=== PATIENT | female | born 1965 | race Caucasian/White ===

== ENCOUNTER 2019-03-04 14:50 | Observation (INO) | payer BC, SELFPAY ==
[2019-03-04] VITALS (8 sets, daily range): BP systolic 111–147; BP diastolic 79–99; PULSE 47–58; RESP 12–19; TEMP 36.6–36.9; O2SAT 94–99; BMI 33.0
--- NOTE | 2019-03-04 14:57 | ED.RN ---
NO OLD EKG
--- NOTE | 2019-03-04 14:58 | CT_ITS ---
STUDY: CTA CHEST REASON FOR EXAM: Female, 53 years old. Right-sided chest pain. Thoracic aneurysm. RADIATION DOSAGE (If Supplied By Facility): CTDIvol = ( 15.60 ) mGy, DLP = ( 1133.06 ) mGycm TECHNIQUE: The examination was performed with the intravenous administration of 100 IV Isovue 370. Post-processing of the angiographic images was performed, with multiplanar reformation and 3D reconstruction. Individualized dose optimization techniques were used for this CT. COMPARISON: None. FINDINGS: Normal enhancement of the main pulmonary artery and right and left pulmonary arteries. Normal enhancement of the bilateral peripheral pulmonary arteries. There is no demonstrated pulmonary embolism. Normal thoracic aorta and visualized great vessels. There is no demonstrated aortic dissection. Normal heart and pericardium. Sternal cerclage wires are present from a prior sternotomy. Normal mediastinum. Normal hilar regions. Normal visualized trachea and bronchi. The lungs are well expanded. Normal pulmonary parenchyma. Normal pleura. Normal chest wall structures. There are degenerative changes of thoracic spine. Visualized upper abdomen shows cholelithiasis. CT/CTA Chest W/WO Contrast IMPRESSION: Normal CTA chest examination, without a demonstrated pulmonary embolism or arterial dissection. No acute chest disease. Electronically Signed: Mandeep Garrido MD at 16:30 EDT , Service support ,
--- NOTE | 2019-03-04 14:58 | RAD_ITS ---
STUDY: X-RAY CHEST REASON FOR EXAM: Female, 53 years old. Chest pain and double vision. TECHNIQUE: Single AP portable view of the chest. COMPARISON: None. FINDINGS: EKG electrodes are seen. The lungs are clear and expanded. There is no demonstrated pleural abnormality. Sternal cerclage wires and vascular clips are present from a prior sternotomy and coronary artery bypass graft procedure (CABG). Normal mediastinum and preston. Normal visualized pulmonary arteries. There is atherosclerotic tortuosity of the aortic arch and descending thoracic aorta. Normal visualized thoracic spine. Normal visualized ribs, clavicles, and shoulders. There is no demonstrated abnormality of the visualized soft tissue structures of the upper abdomen. RAD/Chest 1 View (Portable) IMPRESSION: Normal x-ray examination of the chest. Electronically Signed: Shant Mart, at 15:13 EDT , Service support ,
--- NOTE | 2019-03-04 14:59 | CT_ITS ---
STUDY: CTA OF THE ABDOMINAL AORTA AND BILATERAL LOWER EXTREMITIES REASON FOR EXAM: Female, 53 years old. Right-sided pain. History of previous aneurysm. TECHNIQUE: Axial CT angiography multi-detector data acquisition was obtained following intravenous administration of 100 IV Isovue 370. Axial images and MIP images were reconstructed from the axial data set. Post-processing of the angiographic images was performed, with multiplanar reformation and 3D reconstruction. Individualized dose optimization techniques were used for this CT. TECHNICAL QUALITY: Good COMPARISON: None. Descriptors of Narrowing: None (0%) Mild (< 50%) Moderate (50-70%) Severe (70-90%) Subtotal/Total Occlusion (90-100%) Non-Evaluable (technically non-diagnostic FINDINGS: Abdominal aorta: No demonstrated narrowing. No aneurysm. No dissection. No significant calcified plaque. Celiac and superior mesenteric arteries: No demonstrated narrowing. Inferior mesenteric artery: No demonstrated narrowing. Right renal artery(arteries): No demonstrated narrowing. Left renal artery(arteries): No demonstrated narrowing. Right common iliac artery: No demonstrated narrowing. Right external iliac artery: No demonstrated narrowing. Right internal iliac artery: No demonstrated narrowing. Left common iliac artery: No demonstrated narrowing. Left external iliac artery: No demonstrated narrowing. Left internal iliac artery: No demonstrated narrowing. There is fatty liver. Otherwise the liver, pancreas, spleen, and adrenal glands, show no acute abnormalities and are unremarkable for age. There is cholelithiasis. No acute abnormalities of the kidneys. Evaluation of the GI tract is limited by absence of oral contrast. Cannot exclude stomach wall thickening. No dilated loops of bowel or evidence for obstruction. Cannot exclude segmental thickening of the mcdonnell of the small or large bowel. Cannot exclude enteritis or colitis. Diverticulosis without diverticulitis. Moderate diffuse fecal retention. Appendix within normal limits. No evidence for adenopathy or mass. Skeletal structures show no acute abnormalities and are unremarkable for age. There are bilateral pars defects of L5 with prominent degenerative disc disease and grade [address]/CTA Abdomen W/WO Contrast IMPRESSION: No acute abnormality. Cholelithiasis. Normal aorta with no aneurysm or dissection. Electronically Signed: Mandeep Garrido MD at 16:36 EDT , Service support ,
--- NOTE | 2019-03-04 14:59 | ED.VIS.GEN ---
History of Present Illness Chief Complaint: Chest Pain Informant: Patient Onset: Days Context: Gradual Onset Timing: Intermittent Current Severity: Moderate Maximum Severity: Moderate Narrative: The patient is a 53-year-old female with history of ascending aortic aneurysm that was repaired 5 years ago presents to the emergency department chest pain. Patient states she has been having intermittent pain in the right side of her chest. She states been about a month. She saw her primary care physician and was started on a new antihypertensive. She states that it was a lisinopril with hydrochlorothiazide derivative. She states her blood pressures been running better, but today was actually low. She was having more pain on the right side of her chest that was worse with exertion and he did feel like it was making her short of breath. She states that the symptoms did seem similar to her prior aortic aneurysm. She does have a known bicuspid valve. She is not on anticoagulants. Prior similar symptoms: Yes Recent Illness/Hospitalization: No Past Medical History - Allergies and Home Meds Allergies/Adverse Reactions: Allergies No Known Allergies Allergy (Verified 03/04/19 14:58) Primary Care Physician: Sabrina Ronquillo,Out of [NON-STAFF] - Prior records reviewed: Yes Past Medical History: - - TAA Surgical History: - - TAA graft Smoking Status: Never smoker Review of Systems General: Denies: Chills, Fever, Sweats Eyes: Denies: Visual changes - bilaterally, Diplopia ENT: Denies: Rhinorrhea, Sore throat Cardiovascular: Reports: Chest pain Respiratory: Reports: Dyspnea Gastrointestinal: Reports: Nausea Genitourinary: Denies: Dysuria, Hematuria, Frequency Musculoskeletal: Denies: Back pain, Extremity Pain Skin: Denies: Rash, Wounds Neurological: Denies: Headache, Weakness, Numbness Psych: Denies: Anxiety Endocrine: Denies: Polyuria Hematologic: Denies: Easy bruising Physical Exam Vital Signs/Narrative: Vital Signs Temp Pulse Resp BP Pulse Ox 03/04/19 14:54 97.9 F 56 L 19 H 128/96 H 99 Inital Vital Signs reviewed: Yes General: Well nourished, Well developed, No Acute Distress Head: Normocephalic, Atraumatic Eyes: Perrl, EOMI ENT: Moist mucous membranes, No rhinorrhea Neck: Supple, Nontender Cardiovascular: Regular rate, Regular rhythm, No murmurs Respiratory: No distress, CTA bilaterally, Chest nontender Abdomen: Soft, Nontender, Nondistended, Normal bowel sounds Back: Nontender, Normal Inspection Extremities: Nontender, No edema Skin: Normal color, No rash Neurological: Alert, Oriented x3, Cranial nerves II-XII grossly intact, Normal Strength, Normal Sensation Psychological: Normal affect, Normal Mood Diagnostic/Tx/Re-eval Chest X-Ray - ED: 1 View, Normal, Heart, Lungs - Rhythm Strip Rhythm Strip: Sinus Rhythm Rate: 52 Ectopy: None - EKG Initial EKG Interpretation: No Acute Injury Pattern, Sinus Bradycardia Prior: No Prior - Medical Decision Making Clinical Impression(s) from Imaging Studies Chest CTA 03/04/19 14:58 IMPRESSION: Normal CTA chest examination, without a demonstrated pulmonary embolism or arterial dissection. No acute chest disease. Electronically Signed: Mandeep Garrido MD at 16:30 EDT , Service support , Chest X-Ray 03/04/19 14:58 IMPRESSION: Normal x-ray examination of the chest. Electronically Signed: Shant Mart, at 15:13 EDT , Service support , Abdomen CTA 03/04/19 14:59 IMPRESSION: No acute abnormality. Cholelithiasis. Normal aorta with no aneurysm or dissection. Electronically Signed: Mandeep Garrido MD at 16:36 EDT , Service support , Abnormal Lab Results 03/04/19 03/04/19 03/04/19 14:55 14:55 14:55 WBC 7.1 RBC 5.06 Hgb 15.4 H Hct 44.9 MCV 88.7 MCH 30.4 MCHC 34.3 RDW Std Deviation 42.1 RDW Coeff of Jluis 12.9 Plt Count 257 MPV 9.7 Immature Gran % (Auto) 0.000 Neut % (Auto) 55.6 Lymph % (Auto) 31.2 Rolette % (Auto) 5.9 Eos % (Auto) 6.7 H Baso % (Auto) 0.6 Absolute Neuts (auto) 4.0 Absolute Lymphs (auto) 2.22 Nucleated RBC % 0 Sodium 140 Potassium 3.6 Chloride 106 Carbon Dioxide 27.0 Anion Gap 7 BUN 13 Creatinine 0.98 Estim Creat Clear Calc 69.38 Est GFR (MDRD) Af Amer 76 Est GFR (MDRD) Non-Af 63 BUN/Creatinine Ratio 13.3 Glucose 83 Calcium 9.2 Magnesium 2.1 Troponin I < 0.015 B-Natriuretic Peptide 25.0 Patient presents to the emergency department with right-sided chest pain and dyspnea. She states that it feels similar when she had a prior aneurysm. EKG was obtained which showed sinus bradycardia without evidence of acute ischemic change. With the patient's history, she underwent CTA of the chest and abdomen. There is no evidence of new aneurysm, dissection, pulmonary embolus, or other dangerous process. With the patient's pain and risk factor, I do feel that she will benefit from admission for stress echo. Patient was discussed with the hospitalist who agrees with plan of care. Impression 1. Chest pain ED Disposition - Plan for ED Patient: Referrals: [facility] [address] Doctor,Out of [NON-STAFF] -
[2019-03-04 15:09] LABS: Absolute Lymphocyte Count 2.22 X10^3/uL (0.83-4.51); Basophil# 0.04 X10^3/uL; Basophil% 0.6 % (0-1); Eosinophil# 0.48 X10^3/uL; Eosinophils% 6.7 % (0-5); Hematocrit 44.9 % (37-47); Hemoglobin 15.4 g/dL (12.0-15.0); Lymphocyte # 2.22 X10^3/ul (4.0); Lymphocyte % 31.2 % (19-41); Mean Corp Hgb Conc 34.3 g/dL (32-36); Mean Corpuscular Hgb 30.4 pg (27.0-32.0); Mean Corpuscular Volume 88.7 fL (81-99); Mean Platelet Vol. 9.7 fl (6.2-12.0); Monocyte# 0.42 X10^3/uL; Monocyte% 5.9 % (0-10); NRBC Flagged by Analyzer 0 % (0-5); Neutrophil # 3.96 X10^3/uL (2.7-7.7); Neutrophil % 55.6 % (47-70); Platelet Count 257 K/mm3 (150-450); RBC Distribution Width CV 12.9 % (11.6-14.6); RBC Distribution Width SD 42.1 fl (35.1-43.9); Red Blood Count 5.06 M/mm3 (4.2-5.4); White Blood Count 7.1 K/mm3 (4.4-11.0)
[2019-03-04] MEDS: Aspirin 81 MG TAB.CHEW 324 MG PO (15:13)
[2019-03-04 15:25] LABS: Anion Gap 7 (5-15); BUN 13 mg/dL (7-18); BUN/Creat Ratio 13.3 RATIO (10-20); Calcium,Total 9.2 mg/dL (8.5-10.1); Chloride 106 mmol/L (98-107); Creatinine, Serum 0.98 mg/dL (0.55-1.02); EST Glomerular Filtration Rate 63 mL/min (>60); Est Glom Filt Rate - Afr Amer 76 mL/min (>60); Estimated Creatinine Clearance 69.38 ml/min; Glucose 83 mg/dL (74-106); Magnesium 2.1 mg/dL (1.6-2.6); Potassium 3.6 mmol/L (3.5-5.1); Sodium Level 140 mmol/L (136-145)
--- NOTE | 2019-03-04 17:32 | PCM.HP.STD ---
Problem List (1) Chest pain Status: Acute Qualifiers: Chest pain type: unspecified Qualified Code(s): R07.9 - Chest pain, unspecified (2) Bicuspid aortic valve Status: Chronic (3) Thoracic aortic aneurysm Status: Chronic Qualifiers: Presence of rupture: without rupture Qualified Code(s): I71.2 - Thoracic aortic aneurysm, without rupture (4) History of aortic aneurysm repair Status: Chronic (5) Obesity (BMI 30.0-34.9) Status: Chronic (6) Hypertension Status: Chronic Qualifiers: Hypertension type: essential hypertension Qualified Code(s): I10 - Essential (primary) hypertension (7) Bradycardia Status: Chronic History of Present Illness Date of Admission: 03/04/19 Chief Complaint: Chest pain The patient is a 53 y/o F w/ PMHx: Bradycardia, bicuspid aortic valve, history of thoracic aortic aneurysm status post repair approximately 5 years prior in [place], hypertension recently initiated on antihypertensive regimen within the last several weeks, obesity who presents to the [facility] on 03/04/19 with at least a 3-week history of intermittent very focal specific right sided chest discomfort described as sharp in nature occurring independent of activity, resolving quickly after 1 to 2 minutes maximum with no associated nausea, emesis, diaphoresis or dyspnea initially however she did have on a.m. of ED day of presentation onset right-sided jaw paresthesias as well as onset of blurred vision specifically also noting that she saw spots in her vision on the right lower field with specific chest discomfort at that time more severe nature, described as a 5-6 out of 10 and ongoing not resolving as it had prior prompting eventual ED presentation for evaluation. In the ED she notes chest discomfort is ongoing but does not appear in any severe discomfort and denies any further vision changes or right jaw paresthesias which she notes resolved very quickly following onset. Work-up in the ED included T 97.9, heart rate 56, BP 120/96, respiratory rate 19, 99% on room air, unremarkable CBC, markable BMP, troponin less than 0.015, BNP 25, EKG with no acute evidence of ischemia with sinus bradycardia, chest x-ray with no acute cardio primary findings, CTPA with no acute evidence of PE or arterial dissection nor acute chest disease, CT abdomen with no acute abnormality with normal-appearing aorta with no aneurysm or dissection, evidence cholelithiasis. In the ED patient measured aspirin therapy. Past Medical History Past Medical History (Chronic Problems): Chronic Problems Bicuspid aortic valve (Chronic) Thoracic aortic aneurysm (Chronic) History of aortic aneurysm repair (Chronic) Obesity (BMI 30.0-34.9) (Chronic) Hypertension (Chronic) Bradycardia (Chronic) Allergies No Known Allergies Allergy (Verified 03/04/19 14:58) Home Medications: Ambulatory Orders Medication Instructions Recorded Losartan/Hydrochlorothiazide 1 tab PO DAILY 03/04/19 [Losartan-Hctz 100-12.5 mg Tab] Surgical History: - - TAA graft as well as coiling. Psychiatric History: No pertinent psych hx [employer] History: No pertinent [employer] history Lives: Alone Smoking Status: Never smoker Tobacco Use: Non-smoker Alcohol: None Drugs: None - *Family History Maternal History Items: - - Patient notes a maternal family history of diabetes. Paternal History Items: - - Patient notes a paternal family history of Crohn's disease. He does state that his paternal family side does have a significant cancer history. Review of Systems Constitutional: Reports: Fatigue. Denies: Anorexia, Chills, Fever, Malaise, Weakness, Weight Change HEENT: Reports: Visual Changes. Denies: Head Aches, Sinus Congestion, Sinus Drainage Cardiovascular: Reports: Chest Pain. Denies: Chest Pressure, Chest Tightness, Light Headedness, Orthopnea, Palpitations, Paroxysmal Noc. Dyspnea, Syncope Respiratory: Denies: Cough, Shortness of Breath, Shortness of breath at rest, Shortness of breath upon exertion, Sputum production, Wheezing Gastrointestinal: Denies: Abdominal Pain, Nausea, Vomiting Genitourinary: Denies: Dysuria Musculoskeletal: Denies: Joint Pain, Joint Tenderness Skin: Denies: Rash, Wounds Neurological: Reports: Numbness. Denies: Focal weakness, Tingling Psychiatric: Denies: Anxiety, Depression, Homicidal Ideations, Suicidal Ideations Hematologic/ Lymphatic: Denies: Easy Bruising, Easy Bleeding VTE Information - Inpt Only VTE Present on Admission: No VTE Mechan Device Prophylaxis: SCD's VTE Pharm Prophylaxis ordered?: Yes Subjective: Seated upright in the bed, no acute distress, notes still having some very focal right-sided discomfort to the chest but states that vision as well as jaw paresthesias have resolved. Objective: Physical Examination: General: awake, alert, oriented x 3 and cooperative, seated upright in bed the ED, notes ongoing focal chest discomfort but appears very comfortable. Skin: normal color, turgor, no icterus, cyanosis. HEENT: AT/NC, EOMI, PERRLA, MMM, no carotid bruits or JVD noted. Lungs: CTA bilaterally, moderate effort, mild decrease BL bases, no rales, ronchi or wheezing. Heart: Bradycardic with regular rhythm; no gallop, rub audible, SM. Abdomen: soft, obese, NTTP, ND, normal BS, no HSM. Extremities: no cyanosis, clubbing, or edema. Neurological: patient awake, alert, oriented x 3; cognitive function intact; pupils equally reactive to light and accomodation; cranial nerves II-XII grossly normal, moving all 4 extremities, no focal deficits, strength mildly global decrease secondary to acute presentation. Psychiatric: affect appears fatigued, no acute evidence of depressive or anxiety feelings. - Physical Exam Vital Signs Temp Pulse Resp BP Pulse Ox 97.9 F 52 L 17 126/81 H 94 03/04/19 14:54 03/04/19 17:24 03/04/19 17:24 03/04/19 17:24 03/04/19 17:24 Oxygen Delivery Method Room Air Weight: 223 lb 8.78 oz Body Mass Index (BMI) 33.0 Laboratory Tests Past 24 Hrs 03/04/19 03/04/19 03/04/19 14:55 14:55 14:55 WBC 7.1 RBC 5.06 Hgb 15.4 H Hct 44.9 MCV 88.7 MCH 30.4 MCHC 34.3 RDW Std Deviation 42.1 RDW Coeff of Jluis 12.9 Plt Count 257 MPV 9.7 Immature Gran % (Auto) 0.000 Neut % (Auto) 55.6 Lymph % (Auto) 31.2 Haines % (Auto) 5.9 Eos % (Auto) 6.7 H Baso % (Auto) 0.6 Absolute Neuts (auto) 4.0 Absolute Lymphs (auto) 2.22 Nucleated RBC % 0 Sodium 140 Potassium 3.6 Chloride 106 Carbon Dioxide 27.0 Anion Gap 7 BUN 13 Creatinine 0.98 Estim Creat Clear Calc 69.38 Est GFR (MDRD) Af Amer 76 Est GFR (MDRD) Non-Af 63 BUN/Creatinine Ratio 13.3 Glucose 83 Calcium 9.2 Magnesium 2.1 Troponin I < 0.015 B-Natriuretic Peptide 25.0 Assessment/Plan All Active Problems Chest pain (Acute) The patient is a 53 y/o F w/ PMHx: Bradycardia, bicuspid aortic valve, history of thoracic aortic aneurysm status post repair approximately 5 years prior in [place], hypertension recently initiated on antihypertensive regimen within the last several weeks, obesity who presents to the [facility] on 03/04/19 with at least a 3-week history of intermittent very focal specific right sided chest discomfort described as sharp in nature occurring independent of activity, resolving quickly after 1 to 2 minutes maximum with onset of worsened discomfort upon a.m. of ED presentation with associated vision changes as well as right-sided jaw paresthesias. 1. Atypical chest pain: Work-up in the ED included T 97.9, heart rate 56, BP 120/96, respiratory rate 19, 99% on room air, unremarkable CBC, markable BMP, troponin less than 0.015, BNP 25, EKG with no acute evidence of ischemia with sinus bradycardia, chest x-ray with no acute cardio primary findings, CTPA with no acute evidence of PE or arterial dissection nor acute chest disease, CT abdomen with no acute abnormality with normal-appearing aorta with no aneurysm or dissection, evidence cholelithiasis. Will admit to the PCU, place on a monitored bed to assure no acute myocardial infarction with serial cardiac enzymes and EKGs. If serial enzymes as well as repeat EKGs do not demonstrate any market changes or acute findings we will pursue a.m. cardiac stress echo. ASA, NG, morphine. FLP in a.m. Magnesium pending. 2. Hypertension: Continue home regimen including losartan, hydrochlorothiazide, PRN hydralazine. 3. History of thoracic AA: History of thoracic aortic aneurysm status post repair 5 years prior [place], CTPA and abdominal CTA with no acute findings demonstrated. 4. Valvular heart disease, bicuspid aortic valve: Known history, extremely audible, pending stress echo as noted. 5. Bradycardia: Chronic stable, maintain on telemetry. 6. Morbid Obesity: Weight loss and lifestyle changes encouraged, nutrition consulted. 7. DVT prophylaxis: SCDs, Lovenox. Code Visit OBSV E&M: 62160 Initial observation care L3
--- NOTE | 2019-03-04 18:07 | EKG12_ITS ---
Test Reason : ADMIT EKG Blood Pressure : / mmHG Vent. Rate : 042 BPM Atrial Rate : 042 BPM P-R Int : 174 ms QRS Dur : 092 ms QT Int : 486 ms P-R-T Axes : 042 011 043 degrees QTc Int : 405 ms Marked sinus bradycardia Abnormal ECG Confirmed by DEANNA ZUNIGA, ABELARDO ([id number]), editor book FARIBA LIVE ([id number]) on 03/09/2019 1:51:44 PM Referred By: Erlinda Dumont Confirmed By:FAYE HUERTA MD
--- NOTE | 2019-03-04 20:05 | NURSING ---
Pt expressed to this RN that she is actively worried about her blood pressure ever since her aortic aneurysm this past year. Pt was educated on how often her blood pressure would be monitored throughout night. Pt was insistent that blood pressure be checked more frequently. This RN explained to pt that this could be arranged and this was passed onto the PCU kiln charger, Marga Malik. Pt also expressed concerns about stress echo scheduled for the next morning. Pt was informed on importance of stess echo and additional education was provided.
[2019-03-04] MEDS: 0.9% Normal Saline 1,000 ML 100 ML IV (20:22)
[2019-03-05] VITALS (12 sets, daily range): BP systolic 109–133; BP diastolic 66–91; PULSE 39–55; RESP 12–14; TEMP 36.5–36.8; O2SAT 94–100
[2019-03-05] MEDS: 0.9% Normal Saline 1,000 ML 100 ML IV (05:19)
[2019-03-05] MEDS: Aspirin E.C. 81 MG Tablet PO (05:26)
[2019-03-05] MEDS: Losartan Potassium 100 MG Tablet PO (05:26)
[2019-03-05 05:42] LABS: Absolute Lymphocyte Count 2.26 X10^3/uL (0.83-4.51); Absolute Neutrophil Count 2.2 X10^3/uL (2.0-7.7); Basophil# 0.05 X10^3/uL; Basophil% 0.9 % (0-1); Eosinophil# 0.42 X10^3/uL; Eosinophils% 7.8 % (0-5); Hematocrit 41.8 % (37-47); Hemoglobin 13.8 g/dL (12.0-15.0); Lymphocyte # 2.26 X10^3/ul (4.0); Lymphocyte % 42.2 % (19-41); Mean Corpuscular Hgb 29.9 pg (27.0-32.0); Mean Corpuscular Volume 90.7 fL (81-99); Mean Platelet Vol. 9.7 fl (6.2-12.0); Monocyte# 0.42 X10^3/uL; Monocyte% 7.8 % (0-10); NRBC Flagged by Analyzer 0 % (0-5); Neutrophil % 41.1 % (47-70); Platelet Count 213 K/mm3 (150-450); RBC Distribution Width SD 42.8 fl (35.1-43.9); Red Blood Count 4.61 M/mm3 (4.2-5.4); White Blood Count 5.4 K/mm3 (4.4-11.0)
--- NOTE | 2019-03-05 05:55 | EKG12_ITS ---
Test Reason : AM EKG Blood Pressure : / mmHG Vent. Rate : 043 BPM Atrial Rate : 043 BPM P-R Int : 164 ms QRS Dur : 100 ms QT Int : 486 ms P-R-T Axes : 058 015 051 degrees QTc Int : 410 ms Marked sinus bradycardia Abnormal ECG When compared with ECG of 04-MAR-2019 19:20, MANUAL COMPARISON REQUIRED, DATA IS UNCONFIRMED Confirmed by DEANNA ZUNIGA, ABELARDO ([id number]), legal editor FARIBA LIVE ([id number]) on 03/09/2019 1:53:04 PM Referred By: Erlinda Dumont Confirmed By:FAYE HUERTA MD
--- NOTE | 2019-03-05 05:55 | STEWCON_ITS ---
Reason For Study: Chest Pain Stress Results Protocol: Schuyler Protocol Maximum Predicted HR: 167 bpm Target HR: 142 bpm % Maximum Predicted HR: 92 % DurationHeart Rate Stage (mm:ss) (bpm) BP Comment Baseline 48 110/78No Chest Pain; Diluted Definity 3 ML Given Schuyler Protocol Stage I 3:00 105 128/60No Chest Pain [facility] Protocol Stage II 3:00 146 138/64No Chest Pain [facility]yler Protocol Stage III 0:31 153 / No Chest Pain Recovery 73 118/80No Chest Pain Stress Duration: 6:31 mm:ss Maximum Stress HR: 153 bpm METS: 8 Baseline Echocardiogram Findings The estimated ejection fraction is 60 %. Stress Echo Wall motion Data Resting WM Intermediate WM Stress WM Resting Wall Motion Wall Motion Stress No regional wall motion No regional wall motion abnormalities noted. abnormalities noted. However, echo images were not obtained at peak heart rate due to suboptimal images at that time and this does decrease the sensitivity of the test. EKG Data Sinus Bradycardia. Sinus tachycardia with PACs and PVCs. Symptoms with Stress The patient experinced No chest pain . Interpretation Summary The estimated ejection fraction is 60 %. However, echo images were not obtained at peak heart rate due to suboptimal images at that time and this does decrease the sensitivity of the test. No regional wall motion abnormalities noted at rest. No regional wall motion abnormalities noted with stress. The patient experinced No chest pain . The tst was -ve for exercise induced CP, EKG changes of ischemia and echocardiographic changes of ischemia with limitations described above Ordering Physician: Erlinda Dumont Referring Physician: Juan Manuel Price MD Performed By: Carmina Desai, RDCS, RVT
[2019-03-05 05:57] LABS: Anion Gap 3 (5-15); BUN 13 mg/dL (7-18); BUN/Creat Ratio 12.9 RATIO (10-20); Calcium,Total 8.7 mg/dL (8.5-10.1); Chloride 108 mmol/L (98-107); Cholesterol 138 mg/dL (200); Creatinine, Serum 1.01 mg/dL (0.55-1.02); EST Glomerular Filtration Rate 61 mL/min (>60); Est Glom Filt Rate - Afr Amer 74 mL/min (>60); Estimated Creatinine Clearance 67.32 ml/min; Glucose 90 mg/dL (74-106); High Density Lipoprotein 30 mg/dL; Potassium 3.9 mmol/L (3.5-5.1); Sodium Level 143 mmol/L (136-145); Triglycerides 121 mg/dL; Very Low Density Lipoprotein 24 mg/dL (5-40)
--- NOTE | 2019-03-05 12:48 | PCM.PROGNOTE ---
<Tammi Schwartz - Last Filed: 03/05/19 12:56> Subjective: Patient seen and examined. Reports chest pain and right jaw numbness have resolved. Denies dizziness, lightheadedness. Heart rate noted to be intermittently bradycardic. Cardiology consult placed given heart rate consistently dropping to 30s. - Physical Exam General: Alert, Oriented x3, Cooperative HEENT: Atraumatic, PERRLA, EOMI, Normocephalic Neck: Supple, No JVD, Negative Carotid Bruits Lungs: Clear to auscultation, Normal air movement Cardiovascular: Regular Rhythm, Normal S1, Normal S2, Bradycardic Abdomen: Bowel Sounds Present, Soft, Non Tender, Non-Distended, Obese Extremities: No clubbing, No cyanosis, No edema, Capillary Refill Less than 3 Seconds Skin: No rashes, No breakdown Musculoskeletal: No Tenderness to Palpation of Joints or Extremities Neurological: Cranial nerves II-XII grossly intact, Neuro grossly intact Psych/Mental Status: Normal Affect, Appropriate Vital Signs Temp Pulse Resp BP Pulse Ox 97.8 F 53 L 12 133/84 H 94 03/05/19 07:26 03/05/19 11:29 03/05/19 07:26 03/05/19 07:26 03/05/19 07:30 Oxygen Delivery Method Room Air Weight: 223 lb 8.78 oz Body Mass Index (BMI) 33.0 Intake and Output for Last 24 Hours 03/03/19 03/04/19 03/05/19 23:59 23:59 23:59 Intake Total 1054 / 1054 Output Total 0 / 0 Balance 1054 / 1054 Laboratory Tests Past 24 Hrs 03/04/19 03/04/19 03/04/19 14:55 14:55 14:55 WBC 7.1 RBC 5.06 Hgb 15.4 H Hct 44.9 MCV 88.7 MCH 30.4 MCHC 34.3 RDW Std Deviation 42.1 RDW Coeff of Jluis 12.9 Plt Count 257 MPV 9.7 Immature Gran % (Auto) 0.000 Neut % (Auto) 55.6 Lymph % (Auto) 31.2 Charlton % (Auto) 5.9 Eos % (Auto) 6.7 H Baso % (Auto) 0.6 Absolute Neuts (auto) 4.0 Absolute Lymphs (auto) 2.22 Nucleated RBC % 0 Sodium 140 Potassium 3.6 Chloride 106 Carbon Dioxide 27.0 Anion Gap 7 BUN 13 Creatinine 0.98 Estim Creat Clear Calc 69.38 Est GFR (MDRD) Af Amer 76 Est GFR (MDRD) Non-Af 63 BUN/Creatinine Ratio 13.3 Glucose 83 Calcium 9.2 Magnesium 2.1 Troponin I < 0.015 B-Natriuretic Peptide 25.0 Triglycerides Cholesterol LDL Cholesterol VLDL Cholesterol HDL Cholesterol 03/04/19 03/04/19 03/04/19 18:26 18:26 21:20 WBC RBC Hgb Hct MCV MCH MCHC RDW Std Deviation RDW Coeff of Jluis Plt Count MPV Immature Gran % (Auto) Neut % (Auto) Lymph % (Auto) Charlton % (Auto) Eos % (Auto) Baso % (Auto) Absolute Neuts (auto) Absolute Lymphs (auto) Nucleated RBC % Sodium Potassium Chloride Carbon Dioxide Anion Gap BUN Creatinine Estim Creat Clear Calc Est GFR (MDRD) Af Amer Est GFR (MDRD) Non-Af BUN/Creatinine Ratio Glucose Calcium Magnesium 2.0 Troponin I < 0.015 < 0.015 B-Natriuretic Peptide Triglycerides Cholesterol LDL Cholesterol VLDL Cholesterol HDL Cholesterol 03/05/19 03/05/19 05:10 05:10 WBC 5.4 RBC 4.61 Hgb 13.8 Hct 41.8 MCV 90.7 MCH 29.9 MCHC 33.0 RDW Std Deviation 42.8 RDW Coeff of Jluis 13.0 Plt Count 213 MPV 9.7 Immature Gran % (Auto) 0.200 Neut % (Auto) 41.1 L Lymph % (Auto) 42.2 H Charlton % (Auto) 7.8 Eos % (Auto) 7.8 H Baso % (Auto) 0.9 Absolute Neuts (auto) 2.2 Absolute Lymphs (auto) 2.26 Nucleated RBC % 0 Sodium 143 Potassium 3.9 Chloride 108 H Carbon Dioxide 32.0 Anion Gap 3 L BUN 13 Creatinine 1.01 Estim Creat Clear Calc 67.32 Est GFR (MDRD) Af Amer 74 Est GFR (MDRD) Non-Af 61 BUN/Creatinine Ratio 12.9 Glucose 90 Calcium 8.7 Magnesium Troponin I B-Natriuretic Peptide Triglycerides 121 Cholesterol 138 LDL Cholesterol 84 VLDL Cholesterol 24 HDL Cholesterol 30 L Medical Necessity - Tobacco Use Smoking Status: Never smoker Tobacco Use: Non-smoker Assessment/Plan All Active Problems Chest pain (Acute) 1. Atypical chest pain, ACS ruled out-troponin negative. EKG without ST-T changes. CTA of chest without evidence of PE or dissection. CT of abdomen without acute abnormality. Troponin negative. Patient underwent stress echo which demonstrated EF 60%, negative for ischemia. 2. Bradycardia-heart rate frequently dropping to 30s. Patient relatively asymptomatic however given patient is not on any rate limiting medications, cardiology consult placed. She reports her heart rate typically runs in the 50s however she has not known her heart rate to be as low as 30s. 3. Hypertension-patient reports her losartan/HCTZ regimen was increased in the past week due to uncontrolled hypertension. She reports over the past 3 weeks her blood pressure has been very labile, sometimes 190 systolically and then drops. 4. History of thoracic aortic aneurysm-CT negative as noted above. 5. Valvular heart disease with bicuspid aortic valve 6. Morbid obesity-encouraged diet and lifestyle modifications. DVT prophylaxis-Lovenox This patient was seen by ELIZABETH Newman under the supervision of Dr. Smith. <Beka Smith - Last Filed: 03/05/19 14:09> - Physical Exam Vital Signs Temp Pulse Resp BP Pulse Ox 97.8 F 53 L 12 133/84 H 94 03/05/19 07:26 03/05/19 11:29 03/05/19 07:26 03/05/19 07:26 03/05/19 07:30 Oxygen Delivery Method Room Air Weight: 101.4 kg Body Mass Index (BMI) 33.0 Intake and Output for Last 24 Hours 03/03/19 03/04/19 03/05/19 23:59 23:59 23:59 Intake Total 1054 / 1054 Output Total 0 / 0 Balance 1054 / 1054 Laboratory Tests Past 24 Hrs 03/04/19 03/04/19 03/04/19 14:55 14:55 14:55 WBC 7.1 RBC 5.06 Hgb 15.4 H Hct 44.9 MCV 88.7 MCH 30.4 MCHC 34.3 RDW Std Deviation 42.1 RDW Coeff of Jluis 12.9 Plt Count 257 MPV 9.7 Immature Gran % (Auto) 0.000 Neut % (Auto) 55.6 Lymph % (Auto) 31.2 Charlton % (Auto) 5.9 Eos % (Auto) 6.7 H Baso % (Auto) 0.6 Absolute Neuts (auto) 4.0 Absolute Lymphs (auto) 2.22 Nucleated RBC % 0 Sodium 140 Potassium 3.6 Chloride 106 Carbon Dioxide 27.0 Anion Gap 7 BUN 13 Creatinine 0.98 Estim Creat Clear Calc 69.38 Est GFR (MDRD) Af Amer 76 Est GFR (MDRD) Non-Af 63 BUN/Creatinine Ratio 13.3 Glucose 83 Calcium 9.2 Magnesium 2.1 Troponin I < 0.015 B-Natriuretic Peptide 25.0 Triglycerides Cholesterol LDL Cholesterol VLDL Cholesterol HDL Cholesterol 03/04/19 03/04/19 03/04/19 18:26 18:26 21:20 WBC RBC Hgb Hct MCV MCH MCHC RDW Std Deviation RDW Coeff of Jluis Plt Count MPV Immature Gran % (Auto) Neut % (Auto) Lymph % (Auto) Charlton % (Auto) Eos % (Auto) Baso % (Auto) Absolute Neuts (auto) Absolute Lymphs (auto) Nucleated RBC % Sodium Potassium Chloride Carbon Dioxide Anion Gap BUN Creatinine Estim Creat Clear Calc Est GFR (MDRD) Af Amer Est GFR (MDRD) Non-Af BUN/Creatinine Ratio Glucose Calcium Magnesium 2.0 Troponin I < 0.015 < 0.015 B-Natriuretic Peptide Triglycerides Cholesterol LDL Cholesterol VLDL Cholesterol HDL Cholesterol 03/05/19 03/05/19 05:10 05:10 WBC 5.4 RBC 4.61 Hgb 13.8 Hct 41.8 MCV 90.7 MCH 29.9 MCHC 33.0 RDW Std Deviation 42.8 RDW Coeff of Jluis 13.0 Plt Count 213 MPV 9.7 Immature Gran % (Auto) 0.200 Neut % (Auto) 41.1 L Lymph % (Auto) 42.2 H Charlton % (Auto) 7.8 Eos % (Auto) 7.8 H Baso % (Auto) 0.9 Absolute Neuts (auto) 2.2 Absolute Lymphs (auto) 2.26 Nucleated RBC % 0 Sodium 143 Potassium 3.9 Chloride 108 H Carbon Dioxide 32.0 Anion Gap 3 L BUN 13 Creatinine 1.01 Estim Creat Clear Calc 67.32 Est GFR (MDRD) Af Amer 74 Est GFR (MDRD) Non-Af 61 BUN/Creatinine Ratio 12.9 Glucose 90 Calcium 8.7 Magnesium Troponin I B-Natriuretic Peptide Triglycerides 121 Cholesterol 138 LDL Cholesterol 84 VLDL Cholesterol 24 HDL Cholesterol 30 L Assessment/Plan This patient was seen in conjunction with ELIZABETH Newman . I have independently interviewed and examined the patient and reviewed pertinent historical, laboratory, and other data. Please refer to ELIZABETH Newman note for details of this patient's presentation, findings, and recommendations. I have reviewed ELIZABETH Newman note and concur with documented findings. In brief, patient is a 3-year-old lady with previous history of thoracic aortic aneurysm repair who presented with chest pain. Underwent CTA in the ED which was negative subsequently admitted to monitored bed for further management Physical Examination: GENERAL: cooperative HEENT: Atraumatic; moist oral mucosa EYES; Anicteric, Normal Conjunctiva NECK; supple, normal thyroid, no distended JVD. RESPIRATORY: Diminished to auscultation bilaterally, CARDIOVASCULAR: Regular S1 S2, no audible murmurs GI: soft, non-tender, normoactive bowel sounds, : No Renal angle tenderness; EXTREMITIES: No edema, no clubbing, no cyanosis. MUSCULOSKELETAL: No Joint Tenderness; no muscle waisting NEURO: Awake; no lateralizing signs. SKIN: No Rash PSYCH; Normal affect Assessment: 1. Chest pain HI ruled out underwent a stress test which was negative for stress-induced ischemia 2. Bradycardia with heart rates as low as 30s cardiology consulted 3. Essential hypertension 4. History of ascitic aortic aneurysm status post repair 5. BMI of 33.0 weight loss advised Recommendations: 1. I have discussed the results of my overview and impressions with the patient 2. Options for management were reviewed Code Visit OBSV E&M: 35057 Subsequent observation care L3
--- NOTE | 2019-03-05 16:48 | CON.PCM_ITS ---
Problem List (1) Chest pain Status: Acute Qualifiers: Chest pain type: unspecified Qualified Code(s): R07.9 - Chest pain, unspecified (2) Bradycardia Status: Chronic Reason for Consult Date of Consultation: 03/05/19 History of Present Illness: The patient is a 53 y/o F w/ PMHx: Bradycardia, bicuspid aortic valve, history of thoracic aortic aneurysm status post repair approximately 5 years prior in [place], hypertension recently initiated on antihypertensive regimen within the last several weeks, obesity who presents to the [facility] on 03/04/19 with at least a 3-week history of intermittent very focal specific right sided chest discomfort described as sharp in nature occurring independent of activity, resolving quickly after 1 to 2 minutes maximum with no associated nausea, emesis, diaphoresis or dyspnea initially however she did have on a.m. of ED day of presentation onset right-sided jaw paresthesias as well as onset of blurred vision specifically also noting that she saw spots in her vision on the right lower field with specific chest discomfort at that time more severe nature, described as a 5-6 out of 10 and ongoing not resolving as it had prior prompting eventual ED presentation for evaluation. In the ED she notes chest discomfort is ongoing but does not appear in any severe discomfort and denies any further vision changes or right jaw paresthesias which she notes resolved very quickly following onset. Work-up in the ED included T 97.9, heart rate 56, BP 120/96, respiratory rate 19, 99% on room air, unremarkable CBC, markable BMP, troponin less than 0.015, BNP 25, EKG with no acute evidence of ischemia with sinus bradycardia, chest x-ray with no acute cardio primary findings, CTPA with no acute evidence of PE or arterial dissection nor acute chest disease, CT abdomen with no acute abnormality with normal-appearing aorta with no aneurysm or dissection, evidence cholelithiasis. In the ED patient measured aspirin therapy. Patient had a stress echo which was negative for ischemia within limitations of the test as described in the test report. Telemetry revealed bradycardia and so cardiology consult was requested. Patient denies any symptoms from the bradycardia. When she walked on the treadmill for the stress test she was able to mount a tachycardic response. Review of systems: All systems reviewed all else is negative except that in the HPI Past Medical History Allergies/Adverse Reactions: Allergies No Known Allergies Allergy (Verified 03/04/19 14:58) Home Medications: Ambulatory Orders Medication Instructions Recorded Losartan/Hydrochlorothiazide 1 tab PO DAILY 03/04/19 [Losartan-Hctz 100-12.5 mg Tab] Past Medical History (Chronic Problems): Chronic Problems Bicuspid aortic valve (Chronic) Thoracic aortic aneurysm (Chronic) History of aortic aneurysm repair (Chronic) Obesity (BMI 30.0-34.9) (Chronic) Hypertension (Chronic) Bradycardia (Chronic) Surgical History: - - TAA graft as well as coiling. 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 Paternal History Items: - - Patient notes a paternal family history of Crohn's disease. He does state that his paternal family side does have a significant cancer history. Lives: Alone Smoking Status: Never smoker Tobacco Use: Non-smoker Alcohol: None Drugs: None Objective: Vital Signs Temp Pulse Resp BP Pulse Ox 98.3 F 55 L 14 127/91 H 98 03/05/19 15:00 03/05/19 15:00 03/05/19 15:00 03/05/19 15:00 03/05/19 15:00 Oxygen Delivery Method Room Air Weight: 223 lb 8.78 oz Body Mass Index (BMI) 33.0 Intake and Output for Last 24 Hours 03/03/19 03/04/19 03/05/19 23:59 23:59 23:59 Intake Total 1054 / 1054 Output Total 0 / 0 Balance 1054 / 1054 General: Awake, Alert, Oriented x 3 HEENT: Atraumatic Oral: Moist Mucosa Neck: Supple Lungs: Clear to auscultation Cardiovascular: Regular Rhythm, Normal S1, Normal S2 Abdomen: Soft Extremities: No edema Skin: No Rashes Psych/Mental Status: Appropriate 03/04/19 18:26: Magnesium 2.0 03/04/19 18:26: Troponin I < 0.015 03/04/19 21:20: Troponin I < 0.015 03/05/19 05:10: WBC 5.4, RBC 4.61, Hgb 13.8, Hct 41.8, MCV 90.7, MCH 29.9, MCHC 33.0, Plt Count 213, MPV 9.7, Immature Gran % (Auto) 0.200, Neut % (Auto) 41.1 L , Lymph % (Auto) 42.2 H, [place] % (Auto) 7.8, Eos % (Auto) 7.8 H, Baso % (Auto) 0.9, Absolute Neuts (auto) 2.2, Nucleated RBC % 0 03/05/19 05:10: Sodium 143, Potassium 3.9, Chloride 108 H, Carbon Dioxide 32.0, Anion Gap 3 L, BUN 13, Creatinine 1.01, Est GFR (MDRD) Af Amer 74, Est GFR (MDRD) Non-Af 61, BUN/Creatinine Ratio 12.9, Glucose 90, Calcium 8.7, Triglycerides 121, Cholesterol 138, LDL Cholesterol 84, VLDL Cholesterol 24, HDL Cholesterol 30 L Rhythm: EKG: ECHO: Stress Test: Cardiac Cath: PCI: CT Surgery: Holter monitor: EPS: PPM: CXR: Chest CT Scan: Assessment/Plan 1. Bradycardia: Patient does not have any symptoms from bradycardia. She does not have chronotropic incompetence. Will monitor this. 2. Chest pain: Chest pain is atypical by history. The EKG portion of the stress echo was negative. The echocardiographic portion was also negative however the sensitivity of this portion of the test is decreased because of inability to get the images at peak heart rate. Overall the chest pain appears musculoskeletal in origin and has resolved. No further cardiac work-up is required at this time. 3. Status post thoracic aortic aneurysm repair: Will monitor. 4. Bicuspid aortic valve: No evidence of aortic stenosis or regurgitation on physical exam. Echo can be done as an outpatient. Patient can be discharged home from a cardiac standpoint. She can follow-up with me as an outpatient in 2 to 3 weeks.
--- NOTE | 2019-03-05 16:53 | PCM.DC ---
You will use the following diet at home:: Cardiac Discharge Activity: Return to Normal Activity Call your doctor if you observe: Shortness of breath, Dizziness, Fainting spells, Chest pain Allergies/Adverse Reactions: Allergies No Known Allergies Allergy (Verified 03/04/19 14:58) Medications to take at Discharge Losartan/Hydrochlorothiazide [Losartan-Hctz 100-12.5 mg Tab] 1 tab PO DAILY 03/04/19 Primary Care Physician: [facility] Doctor,Out of [NON-STAFF] - Please follow up with your Primary Care Physician in: 1 Week Test Results: Test results from this visit will be discussed in further detail at your follow-up appointment, if applicable. Please Follow Up With: William Price MD When: 2-3 Weeks Proposed Discharge Date: 03/05/19
--- NOTE | 2019-03-05 16:54 | PCM.DC.SUM ---
<Tammi Schwartz - Last Filed: 03/05/19 17:01> Discharge Date and Diagnosis Date of Admission: 03/04/19 Date of Discharge: 03/05/19 - Primary Discharge Diagnosis 1. Atypical chest pain, ACS ruled out 2. Bradycardia 3. Hypertension 4. History of thoracic aortic aneurysm 5. Valvular heart disease with bicuspid aortic valve 6. Morbid obesity - Secondary Discharge Diagnosis Chronic Problems Bicuspid aortic valve (Chronic) Thoracic aortic aneurysm (Chronic) History of aortic aneurysm repair (Chronic) Obesity (BMI 30.0-34.9) (Chronic) Hypertension (Chronic) Bradycardia (Chronic) Hospital Course and Treatment Imaging Results: Diagnostic Data Chest CTA 03/04/19 14:58 IMPRESSION: Normal CTA chest examination, without a demonstrated pulmonary embolism or arterial dissection. No acute chest disease. Electronically Signed: Mandeep Garrido MD at 16:30 EDT , Service support , Chest X-Ray 03/04/19 14:58 IMPRESSION: Normal x-ray examination of the chest. Electronically Signed: Shant Mart, at 15:13 EDT , Service support , Abdomen CTA 03/04/19 14:59 IMPRESSION: No acute abnormality. Cholelithiasis. Normal aorta with no aneurysm or dissection. Electronically Signed: Mandeep Garrido MD at 16:36 EDT , Service support , Dr. Price- Cardiology Operations: None Procedures: Stress test Summary of Care Provided: The patient is a 53 year old F admitted 03/04/2019 due to chest pain. 1. Atypical chest pain, ACS ruled out-troponin negative. EKG without ST-T changes. CTA of chest without evidence of PE or dissection. CT of abdomen without acute abnormality. Troponin negative. Patient underwent stress echo which demonstrated EF 60%, negative for ischemia. Follow-up with primary care physician in 1 week. Follow-up with cardiology in 2 to 3 weeks. 2. Bradycardia-heart rate frequently dropping to 30s. Patient relatively asymptomatic however given patient is not on any rate limiting medications, cardiology consult placed. She reports her heart rate typically runs in the 50s however she has not known her heart rate to be as low as 30s. Bradycardia appears to be mostly asymptomatic. She will continue to follow-up with cardiology as outpatient. Plan for echocardiogram as outpatient. 3. Hypertension-patient reports her losartan/HCTZ regimen was increased in the past week due to uncontrolled hypertension. She reports over the past 3 weeks her blood pressure has been very labile, sometimes 190 systolically and then drops. BP stable during admission. 4. History of thoracic aortic aneurysm-CT negative as noted above. 5. Valvular heart disease with bicuspid aortic valve 6. Morbid obesity-encouraged diet and lifestyle modifications. General: Alert, Oriented x3, Cooperative HEENT: Atraumatic, PERRLA, EOMI, Normocephalic Neck: Supple, No JVD, Negative Carotid Bruits Lungs: Clear to auscultation, Normal air movement Cardiovascular: Regular Rhythm, Normal S1, Normal S2, Bradycardic Abdomen: Bowel Sounds Present, Soft, Non Tender, Non-Distended, Obese Extremities: No clubbing, No cyanosis, No edema, Capillary Refill Less than 3 Seconds Skin: No rashes, No breakdown Musculoskeletal: No Tenderness to Palpation of Joints or Extremities Neurological: Cranial nerves II-XII grossly intact, Neuro grossly intact Psych/Mental Status: Normal Affect, Appropriate Patient seen and examined prior to discharge. Physical assessment as noted above. Patient is stable for discharge with follow up recommendations as noted above. This patient was seen by ELIZABETH Newman under the supervision of Dr. Smith. - Physical Exam Vital Signs Temp Pulse Resp BP Pulse Ox 98.3 F 55 L 14 127/91 H 98 03/05/19 15:00 03/05/19 15:00 03/05/19 15:00 03/05/19 15:00 03/05/19 15:00 Oxygen Delivery Method Room Air Weight: 223 lb 8.78 oz Body Mass Index (BMI) 33.0 Intake and Output for Last 24 Hours 03/03/19 03/04/19 03/05/19 23:59 23:59 23:59 Intake Total 1054 / 1054 Output Total 0 / 0 Balance 1054 / 1054 Laboratory Tests Past 24 Hrs 0803/04/19 03/04/19 18:26 18:26 21:20 WBC RBC Hgb Hct MCV MCH MCHC RDW Std Deviation RDW Coeff of Jluis Plt Count MPV Immature Gran % (Auto) Neut % (Auto) Lymph % (Auto) Wood % (Auto) Eos % (Auto) Baso % (Auto) Absolute Neuts (auto) Absolute Lymphs (auto) Nucleated RBC % Sodium Potassium Chloride Carbon Dioxide Anion Gap BUN Creatinine Estim Creat Clear Calc Est GFR (MDRD) Af Amer Est GFR (MDRD) Non-Af BUN/Creatinine Ratio Glucose Calcium Magnesium 2.0 Troponin I < 0.015 < 0.015 Triglycerides Cholesterol LDL Cholesterol VLDL Cholesterol HDL Cholesterol 03/05/19 03/05/19 05:10 05:10 WBC 5.4 RBC 4.61 Hgb 13.8 Hct 41.8 MCV 90.7 MCH 29.9 MCHC 33.0 RDW Std Deviation 42.8 RDW Coeff of Jluis 13.0 Plt Count 213 MPV 9.7 Immature Gran % (Auto) 0.200 Neut % (Auto) 41.1 L Lymph % (Auto) 42.2 H Wood % (Auto) 7.8 Eos % (Auto) 7.8 H Baso % (Auto) 0.9 Absolute Neuts (auto) 2.2 Absolute Lymphs (auto) 2.26 Nucleated RBC % 0 Sodium 143 Potassium 3.9 Chloride 108 H Carbon Dioxide 32.0 Anion Gap 3 L BUN 13 Creatinine 1.01 Estim Creat Clear Calc 67.32 Est GFR (MDRD) Af Amer 74 Est GFR (MDRD) Non-Af 61 BUN/Creatinine Ratio 12.9 Glucose 90 Calcium 8.7 Magnesium Troponin I Triglycerides 121 Cholesterol 138 LDL Cholesterol 84 VLDL Cholesterol 24 HDL Cholesterol 30 L Discharge Diet: Low fat/ Low Cholesterol Discharge Activity: Return to Normal Activity Call your doctor if you observe: Shortness of breath, Dizziness, Fainting spells, Chest pain Home Medications: Medications to take at Discharge Losartan/Hydrochlorothiazide [Losartan-Hctz 100-12.5 mg Tab] 1 tab PO DAILY 03/04/19 Primary Care Physician: [facility] Doctor,Out of [NON-STAFF] - Please follow up with your Primary Care Physician in: 1 Week Please Follow Up With: William Price MD When: 2-3 Weeks Disposition: Home Minutes spent on discharge:: 35 Patient Condition:: Stable Medical Necessity - Tobacco Use Smoking Status: Never smoker Tobacco Use: Non-smoker Meaningful Use Info Meaningful Use Diagnoses (Choose all that apply): None applicable <Beka Smith - Last Filed: 03/06/19 10:51> Discharge Date and Diagnosis - Secondary Discharge Diagnosis Chronic Problems Bicuspid aortic valve (Chronic) Thoracic aortic aneurysm (Chronic) History of aortic aneurysm repair (Chronic) Obesity (BMI 30.0-34.9) (Chronic) Hypertension (Chronic) Bradycardia (Chronic) Hospital Course and Treatment Summary of Care Provided: This patient was seen in conjunction with ELIZABETH Newman . I have independently interviewed and examined the patient and reviewed pertinent historical, laboratory, and other data. Please refer to ELIZABETH Newman note for details of this patient's presentation, findings, and recommendations. I have reviewed ELIZABETH Newman note and concur with documented findings. In brief, patient is a 3-year-old lady with previous history of thoracic aortic aneurysm repair who presented with chest pain. Underwent CTA in the ED which was negative subsequently admitted to monitored bed for further management Assessment: 1. Chest pain MT ruled out underwent a stress test which was negative for stress-induced ischemia 2. Bradycardia with heart rates as low as 30s cardiology consulted 3. Essential hypertension 4. History of ascitic aortic aneurysm status post repair 5. BMI of 33.0 weight loss advised Hospital course: As documented above by Tammi Schwartz NP?C - Physical Exam Vital Signs Temp Pulse Resp BP Pulse Ox 98.3 F 55 L 14 127/91 H 98 03/05/19 15:00 03/05/19 15:00 03/05/19 15:00 03/05/19 15:00 03/05/19 15:00 Oxygen Delivery Method Room Air Weight: 101.4 kg Body Mass Index (BMI) 33.0 Intake and Output for Last 24 Hours 03/04/19 03/05/19 03/06/19 23:59 23:59 23:59 Intake Total 1054 / 1054 Output Total 0 / 0 Balance 1054 / 1054 Code Visit OBSV E&M: 97691 Observation care discharge
== END 2019-03-05 16:54 | disposition home or self-care (01) ==
LOC: ED 15:28 → PCU 18:07
PROVIDERS: Admitting Provider Family Medicine; Emergency Provider Emergency Medicine; Family Provider Family Medicine; PCP Family Medicine; Referring Provider Family Medicine; Visit Provider Internal Medicine
DX: R07.89 Other chest pain (principal); R06.02 Shortness of breath; R00.1 Bradycardia, unspecified; I10 Essential (primary) hypertension; E66.01 Morbid (severe) obesity due to excess calories; Z68.33 Body mass index [BMI] 33.0-33.9, adult; Z71.3 Dietary counseling and surveillance; Z79.899 Other long term (current) drug therapy; Q23.1 Congenital insufficiency of aortic valve; Z86.79 Personal history of other diseases of the circulatory system
CPT/HCPCS: 36415; 71045; 71275; 74175; 80048; 80061; 83735; 83880; 84484; 85025; 93005; 93017; 93350; 96360; 96361; 99218; 99285; J7030; Q9957; Q9967; A4216; C8928; G0378